=== PATIENT | male | born 1985 | race Caucasian/White ===

== ENCOUNTER 2019-10-08 10:44 | Emergency (ER) | payer OTHER, SELFPAY ==
[2019-10-08 10:53] VITALS: BP 166/133; PULSE 93; RESP 18; TEMP 36.8; O2SAT 100
--- NOTE | 2019-10-08 11:16 | ED.DENTAL ---
HPI - Dental/Oral General Chief complaint: Dental/Oral <MAHSA Carrillo Last Filed: 10/08/19 11:22> Stated complaint: toothache <MAHSA Carrillo Last Filed: 10/08/19 11:22> Time Seen by Provider: 10/08/19 10:54 <MAHSA Carrillo Last Filed: 10/08/19 11:22> Source: patient <MAHSA Carrillo Last Filed: 10/08/19 11:22> Mode of arrival: ambulatory <MAHSA Carrillo Last Filed: 10/08/19 11:22> Limitations: no limitations <MAHSA Carrillo Last Filed: 10/08/19 11:22> History of Present Illness HPI Narrative: This is a 33-year-old male that presents the emergency department for toothache x4 days. Reports he broke the tooth a couple weeks ago. Reports he started to have pain in a couple of days ago. He has taken Tylenol with little relief. Reports he does have an appointment with a dentist in about a week. Denies fever, dysphagia, or shortness of breath. <MAHSA Carrillo Last Filed: 10/08/19 11:22> MD Complaint: tooth pain <MAHSA Carrillo Last Filed: 10/08/19 11:22> Location: Tooth # (3) <MAHSA Carrillo Last Filed: 10/08/19 11:22> Related Data Allergies/adverse reactions: Allergies Allergy/AdvReac Type Severity Reaction Status Date / Time No Known Allergies Allergy Verified 10/08/19 11:00 <MAHSA Carrillo Last Filed: 10/08/19 11:22> Review of Systems Review of Systems: Narrative: CONSTITUTIONAL: Denies fever ENT: Reports dentalgia RESPIRATORY: Denies dyspnea. <MAHSA Carrillo Last Filed: 10/08/19 11:22> All systems reviewed & are unremarkable except as noted in HPI and below <MAHSA Carrillo Last Filed: 10/08/19 11:22> [facility] Past Medical History Medical History: Medical History (Updated 10/08/19 @ 11:21 by Lalitha Gonsalez PA-C) No active medical problems <Lalitha Gonsalez PA-C - Last Filed: 10/08/19 11:22> Social History Social History: Social History (Updated 10/08/19 @ 11:18 by Lalitha Gonsalez PA-C) Substance use: never Gender identity (if verbalized by the patient): Male <Lalitha Gonsalez PA-C - Last Filed: 10/08/19 11:22> Exam Narrative: Exam Narrative: GENERAL: Well-appearing, well-nourished, and in no acute distress. HEAD: Normocephalic, atraumatic. EYES: EOMI. ENT: Mucous membranes moist. Oropharynx without tonsillar hypertrophy exudate or other lesions. Poor dentition. Several broken teeth. Tooth #3 tender to palpation without surrounding erythema or edema to suggest abscess NECK: Supple. No adenopathy or masses. CHEST: Airway patent EXTREMITIES: Normal range of motion. No edema. SKIN: Warm, dry, no rash. NEURO: No focal deficits. Alert and oriented x3. PSYCH: Normal mood and affect <Lalitha Gonsalez PA-C - Last Filed: 10/08/19 11:22> Course Vital Signs Vital signs: Vital Signs Temperature 98.3 F 10/08/19 10:53 Pulse Rate 93 10/08/19 10:53 Respiratory Rate 18 10/08/19 10:53 Blood Pressure 166/133 H 10/08/19 10:53 Pulse Oximetry 100 10/08/19 10:53 Temperature 98.7 F 10/08/19 11:52 Pulse Rate 95 10/08/19 11:52 Respiratory Rate 18 10/08/19 11:52 Blood Pressure 140/99 H 10/08/19 11:52 Pulse Oximetry 100 10/08/19 11:52 <Lalitha Gonsalez PA-C - Last Filed: 10/08/19 11:22> Vital Signs Temperature 98.3 F 10/08/19 10:53 Pulse Rate 93 10/08/19 10:53 Respiratory Rate 18 10/08/19 10:53 Blood Pressure 166/133 H 10/08/19 10:53 Pulse Oximetry 100 10/08/19 10:53 Temperature 98.7 F 10/08/19 11:52 Pulse Rate 95 10/08/19 11:52 Respiratory Rate 18 10/08/19 11:52 Blood Pressure 140/99 H 10/08/19 11:52 Pulse Oximetry 100 10/08/19 11:52 <Celia Crain MD - Last Filed: 10/08/19 16:32> MDM - Dental/Oral MDM Narrative Medical decision making narrative: Patient presents the emergency department for toothache x4 days. He is afebrile and
[2019-10-08] MEDS: KETOROLAC (*BKC) 60 MG/2 ML VIAL IM (11:26)
[2019-10-08 11:52] VITALS: BP 140/99; PULSE 95; RESP 18; TEMP 37.1; O2SAT 100
== END 2019-10-08 11:54 | disposition home or self-care (01) ==
PROVIDERS: Emergency Provider General Practice
DX: K08.89 Other specified disorders of teeth and supporting structures (principal)
CPT/HCPCS: 96372; 99283; J1885